=== PATIENT | female | born 1950 | race Caucasian/White ===

== ENCOUNTER 2020-04-27 12:13 | Observation (INO) ==
[2020-04-27 13:22] LABS: Bacteria,Urine Few per hpf (None-Few); Bilirubin,Urine Negative (Negative); Blood,Urine Small (Negative); Clarity,Urine Turbid (Clear); Color,Urine Yellow (Yellow); Glucose,Urine (UA) >=1000 mg/dL (Normal); Hyaline Casts,Urine Few per lpf (None Seen); Ketones,Urine Negative (Negative); Leukocyte Esterase,Urine Large (Negative); Mucus,Urine Few per lpf (None-Few); Nitrite,Urine Negative (Negative); Protein,Urine 200 mg/dL (Neg-Trace); RBC,Urine 15-30 per hpf (0-3); Specific Gravity,Urine 1.025 (1.010-1.025); Squamous Epithelial Cell,Urine Moderate per hpf (None-Few); Urobilinogen,Urine Normal (Normal); WBC,Urine 15-30 per hpf (0-3)
[2020-04-27 13:22] LABS: INR 1.1
[2020-04-27 13:25] LABS: Activated Partial Thrombo Time 28.4 Seconds (26.0-36.0)
[2020-04-27 13:38] LABS: Basophils # 0.1 K/mcL (0.0-0.2); Basophils % 0.5 %; Eosinophils # 0.2 K/mcL (0.0-0.6); Eosinophils % 2.1 %; Hematocrit 33.9 % (35.3-44.9); Immature Granulocytes % 0.4 % (0-4); Lymphocytes # 1.5 K/mcL (0.6-4.6); Lymphocytes % 14.2 %; Mean Corpuscular HGB Conc 32.4 g/dL (31.6-35.5); Mean Corpuscular Hemoglobin 29.4 pg (28.0-33.3); Mean Corpuscular Volume 90.6 fL (83.0-100.0); Mean Platelet Volume 10.8 fL (9.4-12.4); Monocytes # 0.7 K/mcL (0.0-1.3); Neutrophils # 7.8 K/mcL (1.6-8.9); Platelet Count 214 K/mcL (140-400); Red Blood Count 3.74 M/mcL (3.82-4.97); Segmented Neutrophils % 75.8 %; White Blood Count 10.2 K/mcL (4.3-11.1)
[2020-04-27 13:47] LABS: BUN/Creatinine Ratio 17 (6-26); Blood Urea Nitrogen 34 mg/dL (8-23); Calcium 8.7 mg/dL (8.6-10.3); Carbon Dioxide 22 mEq/L (23-29); Chloride 99 mEq/L (98-107); Glucose 388 mg/dL (70-105); Osmolality,Calculated 294 (280-300); Potassium 4.9 mEq/L (3.5-5.1); Sodium 130 mEq/L (136-145); Troponin I < 0.03 ng/mL (< 0.04); eGFR For African Americans 31 (> 60); eGFR For Non-African Americans 25 (> 60)
[2020-04-27 13:51] LABS: Thyroid Stimulating Hormone 0.295 mcIU/mL (0.340-5.600)
[2020-04-27] MEDS ORDERED: Aspirin 81 MG TAB.CHEW PO STA (15:15)
[2020-04-27] MEDS ORDERED: Ondansetron 4 MG/2 ML VIAL IVP PRN (15:19)
[2020-04-27] MEDS ORDERED: Naloxone 0.4 MG/ML INJ IVP PRN (15:19)
[2020-04-27] MEDS ORDERED: Dextrose Gel 15 GM/37.5 ML TUBE PO PRN ×2 (15:23)
[2020-04-27] MEDS ORDERED: *HR* Dextrose 50 % in Water (Vial) 50 ML VIAL IVP PRN (15:23)
[2020-04-27] MEDS ORDERED: D5% in Water 1,000 ML IVC PRN (15:23)
[2020-04-27] MEDS ORDERED: Insulin Human Regular 10 UNIT in 0.9 % Sodium Chloride 10 ML IV ONE (15:23)
[2020-04-27] MEDS ORDERED: Perflutren Lipid Microsphere 1.3 ML in 0.9 % Sodium Chloride 8.7 ML IVP PRN (15:32)
[2020-04-27] MEDS: 0.9 % Sodium Chloride 1,000 ML IVC SCH (17:16)
[2020-04-27] MEDS: Insulin LISPRO 300 UNITS/3 ML VIAL SUBQ SCH ×2 (20:05→21:31)
[2020-04-27] MEDS: amLODIPine 5 MG TABLET PO SCH (20:06)
[2020-04-27] MEDS: *HR* Heparin 5,000 UNIT/ML VIAL SQ SCH (20:09)
[2020-04-27] MEDS ORDERED: Insulin DETEMIR 100 UNIT/ML X5UNITS SUBQ SCH (21:00)
[2020-04-27] MEDS: Insulin DETEMIR 100 UNIT/ML X5UNITS SUBQ SCH (21:40)
[2020-04-28] MEDS: 0.9 % Sodium Chloride 1,000 ML IVC SCH (04:57)
[2020-04-28] MEDS: *HR* Heparin 5,000 UNIT/ML VIAL SQ SCH ×2 (05:13→17:39)
[2020-04-28 06:40] LABS: Basophils % 0.4 %; Eosinophils # 0.3 K/mcL (0.0-0.6); Eosinophils % 3.5 %; Hematocrit 35.5 % (35.3-44.9); Hemoglobin 11.4 g/dL (11.5-15.4); Immature Granulocytes % 0.3 % (0-4); Lymphocytes # 1.5 K/mcL (0.6-4.6); Mean Corpuscular HGB Conc 32.1 g/dL (31.6-35.5); Mean Corpuscular Hemoglobin 29.5 pg (28.0-33.3); Mean Corpuscular Volume 91.7 fL (83.0-100.0); Mean Platelet Volume 10.3 fL (9.4-12.4); Monocytes # 0.7 K/mcL (0.0-1.3); Monocytes % 7.8 %; Neutrophils # 6.3 K/mcL (1.6-8.9); Platelet Count 189 K/mcL (140-400); Red Blood Count 3.87 M/mcL (3.82-4.97); Red Cell Distribution Width 13.1 % (11.5-14.5); White Blood Count 8.9 K/mcL (4.3-11.1)
[2020-04-28 07:03] LABS: Calcium 8.5 mg/dL (8.6-10.3); Magnesium 1.8 mg/dL (1.6-2.6); Phosphorous 2.8 mg/dL (2.7-4.5); Potassium 4.5 mEq/L (3.5-5.1)
[2020-04-28] MEDS: Aspirin 81 MG TAB.CHEW PO SCH (08:23)
[2020-04-28] MEDS: amLODIPine 5 MG TABLET PO SCH (08:23)
[2020-04-28] MEDS: Insulin LISPRO 300 UNITS/3 ML VIAL SUBQ SCH ×4 (08:23→20:29)
[2020-04-28] MEDS: cefTRIAXone 1,000 MG in Water for inj. (sterile) 10 ML IVP SCH (12:39)
[2020-04-28] MEDS: Gabapentin 300 MG CAPSULE PO SCH ×2 (15:51→20:22)
[2020-04-28] MEDS: BuPROPion SR (12 HR) 150 MG TABLET PO SCH (20:22)
[2020-04-28] MEDS: Insulin DETEMIR 100 UNIT/ML X5UNITS SUBQ SCH (20:29)
[2020-04-28] MEDS ORDERED: NON-FORMULARY MEDICATION 1 EACH EACH (Insulin Aspart 10 UNIT) SQ SCH (21:00)
[2020-04-28] MEDS: *HR* HYDROcodone/Acet 5/325 mg TABLET PO PRN (22:14)
[2020-04-28] MEDS: Budesonide/Formoterol 160/4.5 1 PUFF INH IH SCH (23:01)
[2020-04-29] MEDS: *HR* Heparin 5,000 UNIT/ML VIAL SQ SCH ×2 (05:13→16:59)
[2020-04-29 06:23] LABS: Hematocrit 34.1 % (35.3-44.9); Hemoglobin 10.9 g/dL (11.5-15.4); Mean Corpuscular Hemoglobin 29.3 pg (28.0-33.3); Mean Corpuscular Volume 91.7 fL (83.0-100.0); Platelet Count 161 K/mcL (140-400); Red Blood Count 3.72 M/mcL (3.82-4.97); White Blood Count 6.4 K/mcL (4.3-11.1)
[2020-04-29 06:41] LABS: Calcium 8.4 mg/dL (8.6-10.3); Chol/HDL Ratio 3.3 (0-4.9); Magnesium 1.8 mg/dL (1.6-2.6); Potassium 4.2 mEq/L (3.5-5.1)
[2020-04-29] MEDS: cefTRIAXone 1,000 MG in Water for inj. (sterile) 10 ML IVP SCH (07:51)
[2020-04-29] MEDS: SUB Q INSULIN DEVICE SQ SCH (07:51)
[2020-04-29] MEDS: Gabapentin 300 MG CAPSULE PO SCH ×3 (07:52→21:47)
[2020-04-29] MEDS: amLODIPine 5 MG TABLET PO SCH (07:52)
[2020-04-29] MEDS: Insulin LISPRO 300 UNITS/3 ML VIAL SUBQ SCH ×4 (07:52→21:48)
[2020-04-29] MEDS: Aspirin 81 MG TAB.CHEW PO SCH (07:52)
[2020-04-29] MEDS: BuPROPion SR (12 HR) 150 MG TABLET PO SCH ×2 (07:52→21:47)
[2020-04-29] MEDS: Budesonide/Formoterol 160/4.5 1 PUFF INH IH SCH ×2 (08:25→20:45)
[2020-04-29] MEDS: Insulin DETEMIR 100 UNIT/ML X5UNITS SUBQ SCH (21:47)
[2020-04-29] MEDS: *HR* HYDROcodone/Acet 5/325 mg TABLET PO PRN (21:47)
[2020-04-30] MEDS: *HR* Heparin 5,000 UNIT/ML VIAL SQ SCH (05:49)
[2020-04-30 07:37] VITALS: BP 132/69
[2020-04-30] MEDS: Insulin LISPRO 300 UNITS/3 ML VIAL SUBQ SCH ×2 (07:38→12:37)
[2020-04-30] MEDS: Budesonide/Formoterol 160/4.5 1 PUFF INH IH SCH (07:47)
[2020-04-30] MEDS: amLODIPine 5 MG TABLET PO SCH (09:27)
[2020-04-30] MEDS: SUB Q INSULIN DEVICE SQ SCH (09:27)
[2020-04-30] MEDS: BuPROPion SR (12 HR) 150 MG TABLET PO SCH (09:27)
[2020-04-30] MEDS: cefTRIAXone 1,000 MG in Water for inj. (sterile) 10 ML IVP SCH (09:27)
[2020-04-30] MEDS: Aspirin 81 MG TAB.CHEW PO SCH (09:27)
[2020-04-30] MEDS: Gabapentin 300 MG CAPSULE PO SCH (09:27)
== END 2020-04-30 13:57 | disposition home or self-care (01) ==
LOC: CDU 12:13 → EMEROOARM 12:13 → SUATTDRO 20:50 → CDU 21:21
PROVIDERS: ADMIT Student in an Organized Health Care Education/Training Program; ATTEND Internal Medicine